=== PATIENT | female | born 1965 | race Caucasian/White ===

== ENCOUNTER 2021-04-27 09:58 | Day surgery (SDC) | payer OTHER ==
[2021-04-27] MEDS ORDERED: Lidocaine 1% MPF 2 ML VIAL ONE (10:17)
[2021-04-27] MEDS ORDERED: PROPOFOL 40 ML ONE (11:10)
[2021-04-27] MEDS ORDERED: Lidocaine 2% PF 100 mg/5 ml Syringe ONE (11:13)
[2021-04-27] MEDS ORDERED: PHENYLEPHRINE-NS 100 MCG/ML 10 ML SYRINGE ONE (11:29)
[2021-04-27] MEDS ORDERED: PROPOFOL 20 ML ONE (11:57)
== END 2021-04-27 12:34 | disposition home or self-care (01) ==
LOC: CSHSDC 09:58
PROVIDERS: ATTEND Internal Medicine Gastroenterology
PROC: 0DB68ZZ Excision of Stomach, Via Natural or Artificial Opening Endoscopic (ICD-10-PCS; principal; 2021-04-27)
PROC: 0DBP8ZZ Excision of Rectum, Via Natural or Artificial Opening Endoscopic (ICD-10-PCS; principal; 2021-04-27)
DX: Z12.11 Encounter for screening for malignant neoplasm of colon (principal); K21.9 Gastro-esophageal reflux disease without esophagitis; K63.5 Polyp of colon; K64.9 Unspecified hemorrhoids; Q43.8 Other specified congenital malformations of intestine; K29.70 Gastritis, unspecified, without bleeding; E03.9 Hypothyroidism, unspecified; K44.9 Diaphragmatic hernia without obstruction or gangrene; F32.9 Major depressive disorder, single episode, unspecified
CPT/HCPCS: 88305; J2001; J2704